=== PATIENT | male | born 1950 | race African-American/Black ===

== ENCOUNTER → 2017-11-06 | Outpatient (CLI) | payer MEDICARE, OTHER ==
[~2017-11-06] MED LIST: ASPI-586 PO; ATEN50TA PO; CEPH-507 PO; FLUT9.9S NS; HYDR-3870 PO; HYDR12.56 PO; LISI10TA2 PO; LORA10CA PO; NIFE30TA2 PO; SIMV20TA3 PO; SITA1TBM4 PO
--- NOTE | 2017-11-06 10:30 | Diagnostic Imaging Report ---
INDICATION: Palpable lump in the right scrotum. FINDINGS: The right testicle measures 4.0 x 2.7 x 2.7 cm and the left testicle measures 3.8 x 3.2 x 2.3 cm. Both testes demonstrate a homogeneous echotexture. No discrete testicular mass is identified. There is blood flow to both testes. The right epididymal head does contain a 11 mm x 10 mm cyst, likely accounting for the palpable abnormality. The left epididymis is unremarkable. No significant hydrocele or varicocele is seen. IMPRESSION: 1. No evidence of testicular mass or vascular compromise. 2. Right epididymal cyst, likely accounting for the palpable abnormality. Dictated by: Dictated on workstation # [id number]
== END ==
LOC: RAD 09:04
PROVIDERS: ATTEND Urology
DX: N50.3 Cyst of epididymis (principal)
CPT/HCPCS: 76870

== ENCOUNTER 2017-11-20 12:30 | Outpatient (CLI) | payer MEDICARE, OTHER ==
[~2017-11-20] VITALS: Ht 172.7 cm; Wt 94.3 kg
[2017-11-20] MEDS ORDERED: LORA10CA PO (12:49)
[2017-11-20] MEDS ORDERED: ATEN50TA PO (12:49)
[2017-11-20] MEDS ORDERED: SITA1TBM4 PO (12:49)
[2017-11-20] MEDS ORDERED: LISI10TA2 PO (12:49)
[2017-11-20] MEDS ORDERED: HYDR12.56 PO (12:49)
[2017-11-20] MEDS ORDERED: ASPI-586 PO (12:49)
[2017-11-20] MEDS ORDERED: NIFE30TA2 PO (12:49)
[2017-11-20] MEDS ORDERED: FLUT9.9S NS (12:49)
[2017-11-20] MEDS ORDERED: SIMV20TA3 PO (12:49)
== END 2017-11-20 13:03 | disposition home or self-care (01) ==
LOC: PREOP 12:30
PROVIDERS: ATTEND Urology
DX: Z01.818 Encounter for other preprocedural examination (principal)

== ENCOUNTER 2017-11-24 07:07 | Day surgery (SDC) | payer MEDICARE, OTHER ==
[~2017-11-24] VITALS: Ht 172.7 cm; Wt 94.9 kg
[~2017-11-24 07:07] MED LIST changes: -CEPH-507 PO; -HYDR-3870 PO
[2017-11-24 07:25] VITALS: BP 148/84
[2017-11-24] MEDS ORDERED: LACTATED RINGERS 1,000 ML IV PRN (07:39)
[2017-11-24] MEDS ORDERED: LIDOCAINE PF 2% 2 ML (XYLOCAINE) VIAL ONE (07:43)
[2017-11-24] MEDS ORDERED: fentaNYL INJECTION 100 MCG/2 ML AMP ONE (07:43)
[2017-11-24] MEDS ORDERED: proPOfol 200 MG/20 ML (DIPRIVAN) VIAL IV ONE (07:43)
[2017-11-24] MEDS ORDERED: DEXAMETHASONE 10 MG/ML (DECADRON) 1 ML VIAL ONE (07:43)
[2017-11-24] MEDS ORDERED: MIDAZOLAM 2 MG/2 ML (VERSED) VIAL ONE (07:43)
[2017-11-24] MEDS ORDERED: ONDANSETRON 4 MG/2 ML (SDV) Z0FRAN ONE (07:43)
[2017-11-24] MEDS ORDERED: ceFAZolin INJECTION 1,000 MG in NS (IVPB) 50 ML IV ONE (07:45)
[2017-11-24] MEDS ORDERED: SEVOFLURANE (ULTANE) 15 ML INHAL SOLN ONE ×2 (07:49→09:28)
[2017-11-24] MEDS ORDERED: ceFAZolin 1,000 MG/10 ML (ANCEF) VIAL ONE (07:56)
[2017-11-24] MEDS ORDERED: NS (IVPB) 50 ML ONE (07:57)
--- NOTE | 2017-11-24 08:28 | Progress Note-Pre Operative ---
Pre-Operative Progress Note H&P Reviewed The H&P was reviewed, patient examined and no changes noted. Date Seen by Provider: Nov 24, 2017 Time Seen by Provider: 08: Date H&P Reviewed: Nov 24, 2017 Time H&P Reviewed: 08: Pre-Operative Diagnosis: RT EPIDIDYMAL CYST IRINA HECTOR MD Nov 24, 2017 8:28 am
--- NOTE | 2017-11-24 08:30 | Progress Note-Post Operative ---
Post-Operative Progess Note Surgeon (s)/Trim Mounter (s) Surgeon IRINA HECTOR MD Trim Mounter: N/A Pre-Operative Diagnosis RT EPIDIDYMAL CYST Post-Operative Diagnosis SAME Procedure & Operative Findings Date of Procedure 11/24/17 Procedure Performed/Findings EXCISION OF ABOVE Anesthesia Type GENERAL Estimated Blood Loss Estimated blood loss (mL): NEGLIGIBLE Specimens/Packing Specimens Removed RT EPIDIDYMAL CYST Packin/" GASTON DRAIN IRINA HECTOR MD Nov 24, 2017 8:30 am
--- NOTE | 2017-11-24 08:32 | Discharge Inst-Urology ---
Discharge Inst-Urology Discharge Medications New, Converted, or Re-newed RX: RX on Chart Patient Instructions/Follow Up Plan Please make appointment to been seen in office in 2 weeks. Rest till then Office tomorrow 9am to DC drain Ice pack to scrotum in RR and at home for 6 hours and then PRN Keep bowels soft and moving Showers, no baths Increase oral fluids for 48 hours and then as needed. Diet as tolerated. If questions or concerns contact your physician Or seek help at emergency department. IRINA HECTOR MD Nov 24, 2017 8:32 am
[2017-11-24] MEDS ORDERED: HYDROmorphone 2 MG/ML VIAL (DILAUDID) IV ONE (09:30)
[2017-11-24] MEDS ORDERED: ONDANSETRON 4 MG/2 ML (SDV) Z0FRAN IVP PRN (09:30)
[2017-11-24] MEDS ORDERED: MEPERIDINE (DEMEROL) INJ 50 MG/ML IVP ONE (09:30)
[2017-11-24] MEDS ORDERED: morphine INJ 10 MG/ML 1ML (SYR OR VIAL) IVP ONE ×2 (09:30→10:00)
[2017-11-24 10:25] VITALS: BP 120/71
[2017-11-24] MEDS ORDERED: HYDR-3870 PO (10:50)
[2017-11-24] MEDS ORDERED: CEPH-507 PO (10:50)
[2017-11-24 10:55] VITALS: BP 119/74
--- NOTE | 2017-11-24 11:05 | Anesthesia-General Post-Op ---
General Patient Condition Mental Status/LOC: Same as Preop Cardiovascular: Satisfactory Nausea/Vomiting: Absent Respiratory: Satisfactory Pain: Controlled Complications: Absent Post Op Complications Complications None Follow Up Care/Instructions Patient Instructions None needed. Anesthesia/Patient Condition Patient Condition Patient is doing well, no complaints, stable vital signs, no apparent adverse anesthesia problems. No complications reported per nursing. JUAN PABLO HERNANDEZ CRNA Nov 24, 2017 11:05
[2017-11-24 11:25] VITALS: BP 121/83
--- NOTE | 2017-11-24 13:08 | OPERATIVE REPORT ---
DATE OF SERVICE: 11/24/2017 PREOPERATIVE DIAGNOSIS: Symptomatic, painful and tender right epididymal cyst, refractory to medical treatment. POSTOPERATIVE DIAGNOSIS: Symptomatic, painful and tender right epididymal cyst, refractory to medical treatment. OPERATION PERFORMED: Excision of above. SURGEON: Caesar Hector MD. ANESTHESIA: General. COMPLICATIONS: None. DESCRIPTION OF PROCEDURE: Under satisfactory general anesthesia, the patient in supine position, abdomen, genitalia and thighs were prepped and draped in the usual sterile fashion. Incision was made in the median rhaphe of the scrotum, carried through the right scrotal compartment. The testicle with appendage was delivered and the epididymal cyst was pretty hard and it was dissected and excised completely. Bleeders were cauterized and then the edges were sutured with a running and hemostatic 3-0 chromic catgut suture. The tunica vaginalis was everted behind the spermatic cord with few interrupted 3-0 chromic suture to prevent future hydrocele formation. Testicle was replaced into the scrotum after securing complete hemostasis. The scrotum was drained with a quarter of an inch Mckenzie drain, brought through a separate stab wound to the bottom of the scrotum and secured in position with a 3-0 chromic catgut suture. Closure was performed in layers, the dartos with a running 3-0 chromic catgut and the skin was interrupted 4-0 Vicryl. Telfa, fluff and scrotal support was applied. Estimated blood loss was negligible. Needle, sponge, instrument counts correct x2. The patient tolerated the procedure and anesthesia well and was sent to recovery room in stable condition. Job ID: [id number] DocumentID: [id number] Dictated Date: 11/24/2017 09:25:13 Child Welfare Director Date: 11/24/2017 13:07:33 Dictated By: CAESAR HECTOR MD
--- NOTE | 2017-11-26 23:32 | Physician Query-General Query ---
Physician Query-General Query to Physician: Please document size of scrotal cyst. PHYSICIAN RESPONSE: Based on the clinical findings in the record, please respond to the query above on this document as an addendum. Possible, probable, or questionable diagnosis can be coded for INPATIENTS ONLY. Physician Response: Physician Response 1 CM If you have questions please contact: Registered Private Duty Nurse: Ext: Thank you for your time and cooperation. Clinical Ultrasound Technician/Registered Private Duty Nurse This is a permanent part of the medical record TAWNY العراقي Nov 26, 2017 23:32 IRINA HECTOR MD Dec 01, 2017 07:20
== END 2017-11-24 12:05 | disposition home or self-care (01) ==
LOC: SDC 07:07
PROVIDERS: ATTEND Urology
DX: L72.9 Follicular cyst of the skin and subcutaneous tissue, unspecified (principal); I25.10 Atherosclerotic heart disease of native coronary artery without angina pectoris; E11.9 Type 2 diabetes mellitus without complications; I10 Essential (primary) hypertension; E78.5 Hyperlipidemia, unspecified; Z79.82 Long term (current) use of aspirin; Z79.899 Other long term (current) drug therapy
CPT/HCPCS: 82962; 88304